=== PATIENT | female | born 1985 | race African-American/Black ===

== ENCOUNTER 2017-12-20 18:05 | Observation (INO) | payer MEDICAID, OTHER ==
[~2017-12-20 18:05] MED LIST: ALBU18; [UNRECOGNIZED DRUG - CODE] IJ
[2017-12-20] MEDS ORDERED: TERBUTALINE SULFATE 1 MG/ML 1ML VIAL SC ONE (19:15)
[2017-12-20 20:04] LABS: Urine Amorphous Crystal FEW /hpf (None Seen); Urine Bacteria FEW /hpf (None Seen); Urine Blood Negative /uL (Negative); Urine Mucus FEW (None Seen); Urine Specific Gravity 1.011 (1.001-1.035); Urine WBC 4 /hpf (0 - 5)
[2017-12-20 20:05] LABS: Alcohol, Urine < 3.0 mg/dL (0-5); Amphetamine Screen, Urine NEGATIVE (NEGATIVE); Barbiturate Scree,Urine NEGATIVE (NEGATIVE); Benzodiazephine Screen, Urine NEGATIVE (NEGATIVE); Cannabinoid Screen, Urine NEGATIVE (NEGATIVE); Cocaine Screen, Urine NEGATIVE (NEGATIVE); Opiate Scree,Urine NEGATIVE (NEGATIVE); Phencyclidine Screen, Urine NEGATIVE (NEGATIVE)
== END 2017-12-20 19:17 | disposition home or self-care (01) | DRG 563 ==
LOC: LDRP 18:05
PROVIDERS: ADMIT Specialist; ATTEND Specialist
DX: O60.03 Preterm labor without delivery, third trimester (principal); O21.2 Late vomiting of pregnancy; O26.893 Other specified pregnancy related conditions, third trimester; N89.8 Other specified noninflammatory disorders of vagina; O99.513 Diseases of the respiratory system complicating pregnancy, third trimester; J45.909 Unspecified asthma, uncomplicated; Z3A.38 38 weeks gestation of pregnancy
CPT/HCPCS: 59025; 80307; 81001; 81002; G0378

== ENCOUNTER 2020-10-05 15:36 | Emergency (ER) | payer MEDICAID, OTHER ==
[~2020-10-05] VITALS: Ht 170.2 cm; Wt 94.8 kg
[~2020-10-05 15:36] MED LIST changes: +[UNRECOGNIZED DRUG - CODE] IJ; -[UNRECOGNIZED DRUG - CODE] IJ
[2020-10-05 15:38] VITALS: BP 132/88
[2020-10-05] MEDS ORDERED: IPRATROPIUM BROM 0.5 MG/2.5ML INH SOL NEB ONE (20:00)
[2020-10-05] MEDS ORDERED: ALBUTEROL SULF 2.5 MG/0.5ML(0.5%) NEB SOLN NEB ONE (20:15)
[2020-10-05] MEDS ORDERED: IBUPROFEN 800 MG TAB PO ONE (22:00)
[2020-10-05] MEDS ORDERED: ALBUTEROL SULF HFA 90MCG INH 200DOSE IN SCH (22:00)
== END 2020-10-06 00:27 | disposition home or self-care (01) ==
LOC: ER 15:36
DX: U07.1 COVID-19 (principal); J45.21 Mild intermittent asthma with (acute) exacerbation; Z87.891 Personal history of nicotine dependence
CPT/HCPCS: 36415; 71046; 87426; 94640; 99284; J7644

== ENCOUNTER 2022-05-12 16:23 | Emergency (ER) | payer MEDICAID ==
[~2022-05-12] VITALS: Ht 170.2 cm; Wt 94.2 kg
[2022-05-12 16:46] VITALS: BP 136/70
== END 2022-05-12 20:43 | disposition left against medical advice (07) ==
LOC: ER 16:23
DX: M54.50 Low back pain, unspecified (principal); Z53.21 Procedure and treatment not carried out due to patient leaving prior to being seen by health care provider

== ENCOUNTER 2022-10-30 19:44 | Emergency (ER) | payer MEDICAID ==
[~2022-10-30] VITALS: Ht 170.2 cm; Wt 91.9 kg
[2022-10-30 19:59] LABS: Basophils # (auto) 0.1 10 ^3/uL (0-0.2); Lymphocytes # (auto) 2.6 10 ^3/uL (0.4-5.4)
[2022-10-30] MEDS ORDERED: IPRATROPIUM BROM 0.5 MG/2.5ML INH SOL NEB ONE (20:00)
[2022-10-30] MEDS ORDERED: ALBUTEROL SULF 2.5 MG/0.5ML(0.5%) NEB SOLN NEB ONE (20:00)
[2022-10-30 20:01] LABS: Basophils % (auto) 0.9 % (0.0-2.0); Eosinophils # (auto) 0.9 10 ^3/uL (0-0.8); Eosinophils % (auto) 9.5 % (0.0-7.0); Hematocrit 34.2 % (36.0-46.0); Hemoglobin 10.7 g/dL (12.2-16.2); Lymphocytes % (auto) 27.3 % (10.0-50.0); Mean Corpuscular Hemoglobin 19.9 pg (28.0-32.0); Mean Corpuscular Hgb Conc. 31.4 g/dL (32.0-36.0); Mean Corpuscular Volume 63.4 fL (80.0-100.0); Monocytes % (auto) 10.6 % (0.0-12.0); Neutrophils % (auto) 51.7 % (37.0-80.0); Nucleated Red Blood Cells % 0.1 %; Red Blood Cells 5.39 10^6/uL (4.0-5.20); Red Cell Distribution Width 17.1 % (11.8-14.3); White Blood Cell 9.7 10^3/uL (4.4-10.8)
[2022-10-30] MEDS ORDERED: DexAMETHasone SOD PHOS 10MG/1ML VIAL INJ IV ONE (20:15)
[2022-10-30] MEDS ORDERED: BUDESONIDE (INHALATION) 0.5 MG/2 ML NEB NEB ONE (20:15)
[2022-10-30 20:20] LABS: Albumin 3.6 g/dL (3.4-5.0); Calcium 8.5 mg/dL (8.5-10.1); Potassium 4.3 mmol/L (3.5-5.1)
[2022-10-30 20:23] LABS: BUN/Creatinine Ratio 8.3 (10.0-20.0); Bilirubin, Total 0.4 mg/dL (0.2-1.0); Total Protein 6.9 g/dL (6.4-8.2)
[2022-10-30 20:47] LABS: Urine Bacteria NONE SEEN /hpf (None Seen); Urine Blood TRACE /uL (Negative); Urine Mucus FEW (None Seen); Urine Specific Gravity 1.027 (1.001-1.035); Urine WBC 2 /hpf (0 - 5)
[2022-10-30] MEDS ORDERED: OSEL75CA5 PO (21:25)
[2022-10-30] MEDS ORDERED: ALBU1.258 IN (21:25)
[2022-10-30] MEDS ORDERED: DOXY-286 PO (21:25)
[2022-10-30] MEDS ORDERED: METH4PAK PO (21:25)
[2022-10-30] MEDS ORDERED: ALBUAER3 IN (21:25)
[2022-10-30] MEDS ORDERED: DOXYCYCLINE 100 MG TAB/CAP PO ONE (21:30)
[2022-10-30] MEDS ORDERED: OSELTAMIVIR 75 MG CAP PO ONE (21:30)
[2022-10-30] MEDS ORDERED: LEVALBUTEROL HCL 1.25 MG/3 ML NEB NEB ONE (21:45)
[2022-10-31] MEDS ORDERED: LEVALBUTEROL HCL 1.25 MG/3 ML NEB NEB SCH
[2022-10-31 01:00] VITALS: BP 119/83
== END 2022-10-31 01:06 | disposition home or self-care (01) ==
LOC: ER 19:53
DX: J45.909 Unspecified asthma, uncomplicated (principal); J11.1 Influenza due to unidentified influenza virus with other respiratory manifestations; R10.2 Pelvic and perineal pain; Z32.02 Encounter for pregnancy test, result negative; Z20.822 Contact with and (suspected) exposure to COVID-19; Z79.899 Other long term (current) drug therapy
CPT/HCPCS: 36415; 71046; 80053; 81001; 81025; 82962; 84484; 84702; 85025; 87426; 87804; 93005; 94640; 96374; 99285; J1100; J7612; J7644

== ENCOUNTER 2023-10-01 18:44 | Observation (INO) | payer MEDICAID ==
[~2023-10-01 18:44] MED LIST changes: +ALBU1.258 IN; +ALBUAER3 IN; +DOXY-286 PO; +METH4PAK PO; +OSEL75CA5 PO
== END 2023-10-01 20:04 | disposition left against medical advice (07) ==
LOC: LDRP 18:44
PROVIDERS: ADMIT Obstetrics & Gynecology; ATTEND Obstetrics & Gynecology
DX: O47.03 False labor before 37 completed weeks of gestation, third trimester (principal); O34.219 Maternal care for unspecified type scar from previous cesarean delivery; Z3A.36 36 weeks gestation of pregnancy; Z53.29 Procedure and treatment not carried out because of patient's decision for other reasons
CPT/HCPCS: 59025; 81002; 94760; G0378

== ENCOUNTER 2025-03-24 17:53 | Emergency (ER) | payer MEDICAID ==
[~2025-03-24] VITALS: Ht 170.2 cm; Wt 94.1 kg
[2025-03-24] MEDS: methylPREDNISolone SOD SUCC 125 MG/2 ML VL IV ONE (18:15)
[2025-03-24] MEDS: IPRATROPIUM BROM 0.5 MG/2.5ML INH SOL NEB ONE (18:30)
--- NOTE | 2025-03-24 18:31 | ED.PDOC ---
SOB-HPI HPI Comments HPI: 39-year-old female who came to ER for shortness of breath. Does have history of asthma. The past few days has been having cough and shortness of breath. Patient ran out off her inhalers. She has been using it all day. Past Medical History: Asthma, anemia, status post blood transfusion Surgical History: Family History: Denies Personal and Social History: Denies HPI: Poor Historian. REVIEW OF SYSTEMS: CONSTITUTIONAL: Denies acute: fever, diaphoresis, chills, generalized weakness. HEAD: Denies acute: headache, photophobia Eyes: Denies acute: Double vision, vision loss, eye pain, eye discharge. EARS: Denies acute: tinnitus, hearing loss, ear discharge, ear pain, THROAT: Denies acute: sore throat, swelling, difficulty swallowing , pain with swallowing, change in voice. NECK: Denies acute: neck pain, neck swelling, stiff neck. HEART: Denies acute : chest pain, palpitations, LUNGS: Denies acute: hemoptysis ABDOMEN: Denies acute: abdominal pain, Nausea, Vomiting, diarrhea, melena , hematemesis, hematochezia SKIN: Denies acute: rash, redness, lesions, itchiness. EXTREMITIES: Denies acute: calf pain, numbness, tingling, weakness, denies pain in extremity. Denies acute: Low back pain. Neuro: Denies acute: focal neurological deficit, motor or sensory focal neurological deficit, tremors, seizure like activity, confusion, dizziness, change in mental status, loss of bowel or bladder function, cauda equina like symptoms. : Denies acute: dysuria, hematuria, flank pain, increase in urinary frequency. PSYCH: Denies acute: hallucination, suicidal ideation, homicidal ideation. FEMALE: Denies acute: abnormal vaginal bleeding, foul odor, unusual discharge. PHYSICAL EXAM: General: ----no----acute distress, awake and alert. Head: normocephalic, atraumatic. No raccoon's eyes, no burns sign. Neck: supple, trachea is midline, no swelling. Throat: Normal phonation. Eyes:, no erythema, no purulent discharge, no proptosis, no icterus. Heart: regular rate, regular rhythm, no significant murmur appreciated. Lungs: no apparent respiratory distress, Able to speak in full sentences. Bilateral wheezing, no rhonchi, no crackles. No stridors Abdomen: non tender to palpation, non distended, soft, no guarding, no rebound, + bowel sounds. Neuro: Awake, Alert, oriented to name, self, situation, follows commands GCS=15. Speech is normal. Skin: no petechia, no purpura, no cyanosis, non-pale, not jaundice. Lower extremities: --no - Pitting edema no deformity, no focal swelling, no calf TTP. Makes eye contact. moves all four extremities. Face: no apparent facial droop. Ambulating in the ED independently. ED COURSE: DISCLAIMER: This medical document was created using an electronic medical record system with voice recognition software and computerized dictation system. Although this document has been carefully reviewed, there might still be some phonetic and typographical errors. Occasional wrong-word or "sound-alike" substitutions may have occurred due to the inherent limitations of voice recognition software. These areas are purely typographical due to imperfections of the software prog jayne and do not reflect any compromise in the patient's medical care. Please read the chart carefully and recognize, using context, where these substitutions have occurred. Chief Complaint: Asthma Time Seen by MD: 18:31 Primary Care Provider: Stephanie Reviewed notes: Nurses Notes, Allergies Information Source: Patient Mode of Arrival: Ambulatory Past Medical History PAST MEDICAL HISTORY: Anemia, Asthma Surgical History: CONSTRUCTION TECH History: No Pertinent CONSTRUCTION TECH History Family History Family History: Unknown Family History (Other): asthma Social History Smoker: Non-Smoker, Quit Greater Than 1 Year Alcohol: Occasionally Drugs: Denies Drug Use Lives In: Home Was a procedure done? Was a procedure done?: No X-Ray, Labs, Meds, VS Vital Signs Date Time Temp Pulse Resp B/P (MAP) Pulse Ox O2 Delivery O2 Flow Rate FiO2 03/24/25 18:30 18 97 Room Air* 0 21 03/24/25 17:56 98.3 94 18 131/89 97 98.3 Current Medications Medications (Trade) Dose Ordered Sig/Janiya Route Start Time Stop Time Status Last Admin Albuterol (Ventolin Medneb) 2.5 mg ONCE ONCE NEB 03/24/25 18:15 03/24/25 18:16 DC 03/24/25 18:33 Ipratropium Hilbert (Atrovent Medneb) 1 mg ONCE ONCE NEB 03/24/25 18:15 03/24/25 18:16 DC 03/24/25 18:30 Time of 1ST Reevaluation: 18:29 Reevaluation 1ST: Unchanged Patient Education/Counseling: Diagnosis, Treatment Family Education/Counseling: No Family Present SEPSIS Sepsis Screen Date sepsis recognized/suspect: Mar 24, 2025 Time Sepsis recognized/suspect: 1757 Recent Procedure: No On Antibiotic Therapy: No Respiratory Rate >20: No Heart Rate >90: Yes Temp<36 C (96.8 F) or >38.3 C: No SBP <90 or MAP <65 mmHG: No New Acute Mental Status Change: No Is the patient on CPAP, BIPAP,: No Vital Signs Date Time Temp Pulse Resp B/P (MAP) Pulse Ox O2 Delivery O2 Flow Rate FiO2 03/24/25 18:30 18 97 Room Air* 0 21 03/24/25 17:56 98.3 94 18 131/89 97 98.3 Medications Medications Dose Ordered Sig/Janiya Route Start Time Stop Time Status Last Admin Dose Admin Albuterol 2.5 mg ONCE ONCE NEB 03/24/25 18:15 03/24/25 18:16 DC 03/24/25 18:33 Ipratropium Hilbert 1 mg ONCE ONCE NEB 03/24/25 18:15 03/24/25 18:16 DC 03/24/25 18:30 Departure 1 Departure Time of Disposition: 18:43 Impression: Primary Impression: Acute asthma Additional Impression: Asthmatic bronchitis Disposition: HOME / SELF CARE / HOMELESS Condition: Stable Additional Instructions: Additional instructions: Please read all instructions provided in this packet carefully. You MUST follow-up with your primary care/family doctor in 1 to 2 days. If you are unable to see your primary care/family doctor, please return to our emergency room for re-assessment and re-evaluation in 1 to 2 days. Return to the emergency room here in our facility or to the nearest ER [facility] if your symptoms change or worsen. CONSULTATIONS: you MUST Follow-up for consultation as soon as possible with: -bead preparer in 1-2 days. Please call for appointment. You MUST call the consultants office yourself to make an appointment. You may need to arrange that through your insurance and/or your primary/family doctor. If you are unable to see the home sales consultant in 1 to 2 days, you must return to our emergency room (or any other ER of your choice) for re-assessment and re- evaluation. Adequate fluid hydration. Although you have been discharged from the Emergency Department, this does not m shari that you have a "clean bill of health". No definitive diagnosis for your symptoms has been made today. It is possible that you are in the process of developing a serious illness. This is why you must return to the ED without fail if any new or worsening symptoms develop. e-Prescriptions Prednisone (Prednisone) 20 Mg Tab 40 MG PO DAILY for 5 Days, #10 TAB Prov: TOBIN ANGEL DO 03/24/25 Albuterol Sulfate (Albuterol Sulfate) 0.083 % Neb 1 VIAL NEB Q4HPRN for 7 Days, #30 VIAL Prov: TOBIN ANGEL DO 03/24/25 Albuterol Sulfate (Albuterol Sulfate Hfa) 108 Mcg/Act Aer 108 MCG IN Q4HPRN PRN for 7 Days, #1 AER Prov: TOBIN ANGEL DO 03/24/25 Discharged With: Self Critical Care Note Critical Care Time?: No I personally scribed for TOBIN ANGEL DO ([email or web address]) on 03/24/25 at 18:31. Electronically submitted by Gordy Suero ([email or web address]). TOBIN ANGEL DO Mar 24, 2025 18:31
[2025-03-24] MEDS: ALBUTEROL SULF 2.5 MG/0.5ML(0.5%) NEB SOLN NEB ONE (18:33)
[2025-03-24] MEDS ORDERED: ALBU108A5 IN (18:57)
[2025-03-24] MEDS ORDERED: PRED20TA2 PO (18:57)
[2025-03-24] MEDS ORDERED: ALBU0.084 NEB (18:57)
[2025-03-24 21:46] VITALS: BP 132/78; PULSE 77; RESP 16; TEMP 98.3; O2SAT 94
[2025-03-24] MEDS: methylPREDNISolone SOD SUCC 125 MG/2 ML VL IM ONE (22:04)
== END 2025-03-24 22:53 | disposition home or self-care (01) ==
LOC: ER 17:53
DX: J45.909 Unspecified asthma, uncomplicated (principal); Z98.890 Other specified postprocedural states
CPT/HCPCS: 94640; 96372; 99283; J2919